=== PATIENT | female | born 1960 | race Caucasian/White ===

== ENCOUNTER 2016-09-15 11:30 | Emergency (ER) | payer OTHER ==
[~2016-09-15] VITALS: Ht 167.6 cm; Wt 103.1 kg
[~2016-09-15 11:30] MED LIST: DIOVAN160 MG PO; LIPITOR40 MG PO; NEXIUM40 MG PO; NORVASC10 MG PO
[2016-09-15 12:56] LABS: HEMATOCRIT 40.3 % (36.0-46.0); MCHC 33.5 G/DL (30.0-36.0); MCV 92.4 FL (83-99); MEAN PLAT.VOLUME 9.6 uM^3 (9.5-12.4); PLATELET COUNT 311 K/uL (156-360); RBC DIS.WIDTH-CV 12.9 % (11.8-14.6); RBC DIS.WIDTH-SD 43.5 % (39-53); RED BLOOD COUNT 4.36 M/uL (3.80-5.20); WHITE BLOOD COUNT 12.7 K/uL (4.1-10.2)
[2016-09-15 13:09] LABS: CHLORIDE 104 mEq/L (99-109); POTASSIUM 4.8 mEq/L (3.7-5.4); SODIUM 137 mEq/L (136-147)
[2016-09-15 13:11] LABS: GLUCOSE 84 mg/dL (70-99)
[2016-09-15 13:12] LABS: ANION GAP 11 MEQ/L (2-14)
[2016-09-15 13:15] LABS: GFR ESTIMATE (CALCULATED) 26 mL/min/
[2016-09-15 13:16] LABS: UREA NITROGEN (BUN) 41 mg/dL (9-23)
[2016-09-15 13:17] LABS: TROP-I INTERPRETATION NEGATIVE; TROPONIN-I < 0.01 ng/mL (0.0-0.30)
[2016-09-15 15:27] LABS: TROP-I INTERPRETATION NEGATIVE; TROPONIN-I < 0.01 ng/mL (0.0-0.30)
[2016-09-15 16:02] LABS: ADD MIUA? YES; BILIRUBIN NEGATIVE; BLOOD MODERATE; COLOR YELLOW ((YELLOW)); GLUCOSE (STRIP) NEGATIVE; KETONES NEGATIVE; LEUKOCYTES NEGATIVE; NITRITE NEGATIVE; PROTEIN (STRIP) NEGATIVE; SPECIFIC GRAVITY 1.013 (1.000-1.030); UROBILINOGEN 0.2 MG/DL (0.2-1.0)
[2016-09-15 16:05] LABS: BACTERIA RARE /HPF; EPITHELIAL CELLS RARE /HPF; MUCUS TRACE /LPF; RED BLOOD CELLS 0-5 /HPF (0-5); UCUL ADDED? NO; WHITE BLOOD CELLS 0-5 /HPF (0-5)
[2016-09-15 16:35] VITALS: BP 112/68
== END 2016-09-15 16:36 | disposition home or self-care (01) ==
LOC: EME 11:30 → EXP 11:30
PROVIDERS: Physician Assistant Medical
DX: M79.601 Pain in right arm (principal); J02.9 Acute pharyngitis, unspecified; E78.5 Hyperlipidemia, unspecified; I10 Essential (primary) hypertension; K21.9 Gastro-esophageal reflux disease without esophagitis; Z87.442 Personal history of urinary calculi
CPT/HCPCS: 71020; 80048; 81003; 84484; 85027; 87651 90; 93005; 99281; 99285; J7030